=== PATIENT | female | born 1985 | race Hispanic/Latino ===

== ENCOUNTER 2017-08-12 13:48 | Inpatient (IN) | payer MEDICAID, OTHER, SELFPAY ==
[2017-08-12] MEDS ORDERED: Lidocaine 2% PF 10 ML AMP (For Epidural Use) ONE (20:00)
[2017-08-12] MEDS ORDERED: ePHEDrine/0.9% NaCl/PF SYRINGE 50 mg/10 ml ONE (20:00)
[2017-08-12 20:36] VITALS: BMI 30.8
[2017-08-12] MEDS ORDERED: Acetaminophen/Codeine 30-300mg Tablet PO PRN (20:41)
[2017-08-12] MEDS ORDERED: Promethazine HCl 25 MG/ML VIAL IM PRN (20:41)
[2017-08-12] MEDS ORDERED: HYDROcodone/Acetaminophen 5/325 mg Tablet PO PRN (20:41)
[2017-08-12] MEDS ORDERED: Acetaminophen 500 MG TAB PO PRN (20:41)
[2017-08-12] MEDS ORDERED: Ondansetron HCl/PF 4 MG/2 ML Vial IVP PRN (20:41)
[2017-08-12] MEDS ORDERED: Misoprostol 200 MCG TAB PR PRN (20:41)
[2017-08-12] MEDS ORDERED: Zolpidem Tartrate 5 MG TAB PO PRN (20:41)
[2017-08-12] MEDS ORDERED: Lidocaine 1% (PF) 30 ML VIAL SC PRN (20:41)
[2017-08-12] MEDS ORDERED: Penicillin G Potassium 5 MILL.UNITS in Sodium Chloride 0.9% 100 ML IVPB SCH (21:00)
[2017-08-12 21:13] LABS: Red Blood Cell (RBC) Count 3.51 mill/uL (4.20-5.40); White Blood Cell (WBC) Count 9.6 thou/uL (4.8-10.8)
[2017-08-12] MEDS: Lactated Ringer's 1,000 ML IV SCH (21:19)
[2017-08-12] MEDS: Misoprostol 100 MCG TAB VAG SCH (21:24)
[2017-08-12 21:29] LABS: ALT (SGPT) 11 U/L (8-55); AST (SGOT) 15 U/L (5-34); Alkaline Phosphatase 188 U/L (40-150); Anion Gap 15 mmol/L (10-20); BUN (Urea Nitrogen) 9 mg/dL (7.0-18.7); Bilirubin, Total 0.4 mg/dL (0.2-1.2); Calc. Creatinine Clearance 146 mL/min (70-130); Calcium 8.6 mg/dL (7.8-10.44); Carbon Dioxide 21 mmol/L (22-29); Chloride 106 mmol/L (98-107); Estimated GFR-MDRD Greater than 90; Globulin 3.4 g/dL (2.4-3.5); Protein, Total 6.7 g/dL (6.0-8.3)
[2017-08-13] MEDS: Lactated Ringer's 1,000 ML IV SCH ×3 (06:04→23:46)
[2017-08-13] MEDS: LR 500 ML/Oxytocin 10 units 500 ML IV SCH (08:10)
[2017-08-13] MEDS: Penicillin G 2.5 MILL.units 2.5 MILL.UNITS in Premix Bag 1 BAG IVPB SCH ×4 (11:52→23:44)
[2017-08-14] MEDS: LR 500 ML/Oxytocin 10 units 500 ML IV SCH ×3 (00:08→17:39)
[2017-08-14] MEDS: Penicillin G 2.5 MILL.units 2.5 MILL.UNITS in Premix Bag 1 BAG IVPB SCH ×7 (03:31→23:54)
[2017-08-14] MEDS: Misoprostol 100 MCG TAB VAG SCH ×3 (07:27→07:29)
[2017-08-14] MEDS: Lactated Ringer's 1,000 ML IV SCH ×3 (07:34→23:53)
[2017-08-14] MEDS ORDERED: Fentanyl 4 mcg/Marc 0.1% Cadd 100 ML ONE (08:49)
[2017-08-14] MEDS ORDERED: Fentanyl 100 MCG/2 ML VIAL ONE (09:23)
[2017-08-14] MEDS ORDERED: diphenhydrAMINE HCl 50 MG/ML 1 ML VIAL IVP PRN (09:45)
[2017-08-14] MEDS ORDERED: Acetaminophen 325 MG TAB PO PRN (09:45)
[2017-08-14] MEDS ORDERED: ePHEDrine/0.9% NaCl/PF SYRINGE 50 mg/10 ml SLOW IVP PRN (09:45)
[2017-08-14] MEDS ORDERED: Eucerin (Mineral Oil/Petrolatum,White) 30 gm Jar TOP PRN (09:45)
[2017-08-14] MEDS ORDERED: Fentanyl 4mcg/Marcaine 0.1% Cassette 100 ML EPIDURAL SCH (09:45)
[2017-08-14] MEDS ORDERED: Promethazine HCl 25 MG/ML VIAL IM PRN ×2 (09:45→22:36)
[2017-08-14] MEDS ORDERED: Ondansetron HCl/PF 4 MG/2 ML Vial IVP PRN ×2 (09:45→22:36)
[2017-08-14] MEDS ORDERED: Communication Order-Pharmacy FS SCH (09:45)
[2017-08-14] MEDS ORDERED: Lactated Ringer's 500 ML IV PRN (09:45)
[2017-08-14] MEDS ORDERED: Naloxone HCl 0.4 mg/ml Vial IVP PRN ×2 (09:45)
[2017-08-14] MEDS: LR / Pitocin 40 units/1000 ml 1,000 ML IV PRN ×2 (19:25→20:24)
[2017-08-14] MEDS ORDERED: HYDROcodone/Acetaminophen 5/325 mg Tablet PO PRN (22:36)
[2017-08-14] MEDS ORDERED: Benzocaine/Menthol 20-0.5% 60 ML CAN TOP PRN (22:36)
[2017-08-14] MEDS ORDERED: diphenhydrAMINE HCl 25 MG CAP PO PRN (22:36)
[2017-08-14] MEDS ORDERED: Acetaminophen/Codeine 30-300mg Tablet PO PRN (22:36)
[2017-08-14] MEDS ORDERED: Lanolin Ointment 7 GM TUBE TOP PRN (22:36)
[2017-08-14] MEDS ORDERED: Bisacodyl 10 MG SUPP PR PRN (22:36)
[2017-08-14] MEDS ORDERED: LR / Pitocin 40 units/1000 ml 1,000 ML IV SCH (22:36)
[2017-08-14] MEDS ORDERED: Milk Of Magnesia 30 ML UDCUP PO PRN (22:36)
[2017-08-14] MEDS ORDERED: Preparation H Ointment 28 GM TUBE PR PRN (22:36)
[2017-08-14] MEDS ORDERED: Docusate (Surfak) 240 MG CAP PO SCH (22:45)
[2017-08-14] MEDS ORDERED: Ferrous Sulfate 325 MG TAB PO SCH (22:45)
[2017-08-14] MEDS ORDERED: Prenatal Vitamin 1 TAB PO SCH (22:45)
[2017-08-15 06:12] LABS: Hematocrit 35.5 % (36.0-47.0); Mean Platelet Volume 9.1 fL (7.4-10.4); White Blood Cell (WBC) Count 18.2 thou/uL (4.8-10.8)
[2017-08-15] MEDS: Ferrous Sulfate 325 MG TAB PO SCH ×2 (08:14→16:34)
[2017-08-15] MEDS: Prenatal Vitamin 1 TAB PO SCH (08:16)
[2017-08-15] MEDS: Docusate (Surfak) 240 MG CAP PO SCH ×2 (08:16→20:38)
[2017-08-16] MEDS: Ferrous Sulfate 325 MG TAB PO SCH (07:57)
[2017-08-16 07:59] VITALS: BP 127/81; TEMP 98.5
[2017-08-16] MEDS: Prenatal Vitamin 1 TAB PO SCH (09:17)
[2017-08-16] MEDS: Docusate (Surfak) 240 MG CAP PO SCH (09:17)
== END 2017-08-16 15:09 | disposition home or self-care (01) | DRG 775 ==
LOC: L&D 20:08 → 3SW 08-14 22:30 → EDSTATUS 08-21 13:45
PROVIDERS: ADMIT Family Medicine; ATTEND Family Medicine
PROC: 10D07Z6 Extraction of Products of Conception, Vacuum, Via Natural or Artificial Opening (ICD-10-PCS; principal; 2017-08-14)
PROC: 0DQR0ZZ Repair Anal Sphincter, Open Approach (ICD-10-PCS; 2017-08-14)
PROC: 10907ZC Drainage of Amniotic Fluid, Therapeutic from Products of Conception, Via Natural or Artificial Opening (ICD-10-PCS; 2017-08-14)
PROC: 3E033VJ Introduction of Other Hormone into Peripheral Vein, Percutaneous Approach (ICD-10-PCS; 2017-08-14)
PROC: 3E0P7GC Introduction of Other Therapeutic Substance into Female Reproductive, Via Natural or Artificial Opening (ICD-10-PCS; 2017-08-14)
PROC: 4A0H7CZ Measurement of Products of Conception, Cardiac Rate, Via Natural or Artificial Opening (ICD-10-PCS; 2017-08-14)
DX: O13.4 Gestational [pregnancy-induced] hypertension without significant proteinuria, complicating childbirth (principal); O70.20 Third degree perineal laceration during delivery, unspecified; O99.824 Streptococcus B carrier state complicating childbirth; O75.81 Maternal exhaustion complicating labor and delivery; O76 Abnormality in fetal heart rate and rhythm complicating labor and delivery; Z37.0 Single live birth; Z3A.40 40 weeks gestation of pregnancy
CPT/HCPCS: 36415; 80053; 81003; 85027; 86780; 87340; J2001; J2540; J3010; J7050; J7120

== ENCOUNTER 2019-12-23 10:45 | Outpatient (CLI) | payer BC ==
--- NOTE | 2019-12-23 13:33 | ULT ---
OB ULTRASOND: Date: 12/23/2019 HISTORY: Size and dates. FINDINGS: Real-time imaging of the pelvis was obtained and shows a single, viable intrauterine , which is in a vertex presentation. The placenta is anterior in location without evidence of previa. The ce rvical canal length is 5.6 cm. heart rate is 147 beats/minute. Review of anatomy showed normal appearing head, cerebellum, 4 chamber heart, stomach, kidneys, cord insertion, bladder, spine, and extremities. 3 vessel cord identified. No anomalies detected. measurements are as follows: BPD: 7.4 cm, 29 weeks/6 days HC: 28.1 cm, 30 weeks/6 days AC: 25.5 cm, 29 weeks/6 days FL: 5.5 cm, 29 weeks/0 days IMPRESSION: 1. Single, viable intrauterine in a vertex presentation. Overall measurements correspond t o a gestational age of 30 weeks and 0 days. Estimated date of delivery is 03/02/2020. 2. Placenta which is anterior in location without evidence of previa. 3. Estimated weight 1415 gm, +/- 207 gm. POS: [facility]
== END 2019-12-23 10:46 | disposition home or self-care (01) ==
LOC: BICULT 10:45
PROVIDERS: ATTEND Family Medicine
DX: Z34.83 Encounter for supervision of other normal pregnancy, third trimester (principal); Z3A.30 30 weeks gestation of pregnancy
CPT/HCPCS: 76805

== ENCOUNTER 2020-03-01 12:08 | Inpatient (IN) | payer BC ==
[~2020-03-01 12:08] MED LIST: Bupivacaine/Epinephrine 0.25% 30 ML VIAL ONE
[2020-03-01] MEDS ORDERED: Promethazine HCl 25 MG/ML VIAL IM PRN (12:18)
[2020-03-01] MEDS ORDERED: Acetaminophen 500 MG TAB PO PRN (12:18)
[2020-03-01] MEDS ORDERED: HYDROcodone/Acetaminophen 5/325 mg Tablet PO PRN (12:18)
[2020-03-01] MEDS ORDERED: Acetaminophen/Codeine 30-300mg Tablet PO PRN (12:18)
[2020-03-01] MEDS ORDERED: Ondansetron PF 4 MG/2 ML Vial IVP PRN (12:18)
[2020-03-01] MEDS ORDERED: Misoprostol 200 MCG TAB PR PRN (12:18)
[2020-03-01] MEDS ORDERED: hydrALAZINE 20 MG/ML VIAL SLOW IVP PRN (12:18)
[2020-03-01] MEDS ORDERED: Butorphanol Tartrate 1 MG/ML VIAL SLOW IVP PRN (12:18)
[2020-03-01] MEDS ORDERED: Lidocaine 1% (PF) 30 ML VIAL SC PRN (12:18)
[2020-03-01] MEDS ORDERED: NS / Oxytocin 40 units/1000ml 1,000 ML IV PRN (12:18)
[2020-03-01] MEDS ORDERED: NS w/ Oxytocin 10 units 500 ML IV SCH ×2 (12:30)
[2020-03-01] MEDS: Lactated Ringer's 1,000 ML IV SCH ×2 (12:50→21:23)
[2020-03-01 13:18] LABS: Hemoglobin 11.7 g/dL (12.0-16.0); Mean Corpuscular HGB CONC 35.5 g/dL (32.0-36.0); Mean Corpuscular Hemoglobin 32.9 pg (27.0-31.0); Mean Corpuscular Volume 92.9 fL (78.0-98.0); Mean Platelet Volume 10.1 fL (7.4-10.4); Platelet Count 122 thou/uL (130-400); RBC Distribution Width 12.2 % (11.5-14.5); Red Blood Cell (RBC) Count 3.55 mill/uL (4.20-5.40); White Blood Cell (WBC) Count 6.9 thou/uL (4.8-10.8)
[2020-03-01] MEDS: Misoprostol 100 MCG TAB VAG SCH (13:27)
[2020-03-01 13:29] LABS: ALT (SGPT) 12 U/L (8-55); AST (SGOT) 15 U/L (5-34); Albumin 3.5 g/dL (3.5-5.0); Alkaline Phosphatase 146 U/L (40-110); Anion Gap 15 mmol/L (10-20); BUN (Urea Nitrogen) 6 mg/dL (7.0-18.7); Bilirubin, Total 0.5 mg/dL (0.2-1.2); Calc. Creatinine Clearance 0 mL/min (70-130); Calcium 8.7 mg/dL (7.8-10.44); Carbon Dioxide 20 mmol/L (22-29); Chloride 107 mmol/L (98-107); Estimated GFR-MDRD Greater than 90; Globulin 3.1 g/dL (2.4-3.5); Glucose 93 mg/dL (70-105); Potassium 3.8 mmol/L (3.5-5.1); Protein, Total 6.6 g/dL (6.0-8.3); Sodium 138 mmol/L (136-145)
[2020-03-01 13:47] LABS: Syphilis Antibody Nonreactive (Nonreactive); Syphilis Antibody Index 0.03 S/CO (<1.00 Non-Reactive)
[2020-03-01 13:48] LABS: HBSAg Index 0.15 S/CO (0-0.99); Hep B Surf Ag Non-Reactive S/CO (NonReactive)
[2020-03-01 14:35] VITALS: BMI 33.3
[2020-03-02] MEDS ORDERED: Fentanyl 4 mcg/Bup 0.1% Cadd 100 ML ONE (00:58)
[2020-03-02] MEDS ORDERED: Lactated Ringer's 500 ML IV PRN (02:06)
[2020-03-02] MEDS ORDERED: Acetaminophen 325 MG TAB PO PRN (02:06)
[2020-03-02] MEDS ORDERED: diphenhydrAMINE 50 MG/ML VIAL IVP PRN (02:06)
[2020-03-02] MEDS ORDERED: EPHEDRINE 25 MG/5 ML SYRINGE SLOW IVP PRN (02:06)
[2020-03-02] MEDS ORDERED: Naloxone HCl 0.4 mg/ml Vial IVP PRN ×2 (02:06)
[2020-03-02] MEDS ORDERED: Promethazine HCl 25 MG/ML VIAL IM PRN (02:06)
[2020-03-02] MEDS ORDERED: Ondansetron PF 4 MG/2 ML Vial IVP PRN ×2 (02:06→06:16)
[2020-03-02] MEDS ORDERED: Communication Order-Pharmacy FS SCH (02:15)
[2020-03-02] MEDS ORDERED: Fentanyl 4 mcg/Bupivacaine 0.1% Cassette 100 ML EPIDURAL SCH (02:15)
[2020-03-02] MEDS: Lactated Ringer's 1,000 ML IV SCH (02:26)
[2020-03-02 05:09] LABS: Bacteria/HPF None Seen HPF (None Seen); Bilirubin Negative (Negative); Blood, Urine 2+ (Negative); Clarity Clear (Clear); Glucose, Urine (Dipstick) Normal (Negative); Leukocyte 25 Leu/uL (Negative); Nitrite Negative (Negative); Protein, Urine (Dipstick) 30 mg/dL (Neg-Trace); RBC/HPF Greater than 50 HPF (0-3); Squamous Epithelial 0-3 HPF (0-3); Urobilinogen Normal mg/dL (Less than 2)
[2020-03-02] MEDS ORDERED: NS / Oxytocin 40 units/1000ml 1,000 ML IV SCH (06:16)
[2020-03-02] MEDS ORDERED: Benzocaine-Menthol 82.5 ML CAN TOP PRN (06:16)
[2020-03-02] MEDS ORDERED: Preparation H Ointment 28 GM TUBE PR PRN (06:16)
[2020-03-02] MEDS ORDERED: Acetaminophen/Codeine 30-300mg Tablet PO PRN (06:16)
[2020-03-02] MEDS ORDERED: hydrALAZINE 20 MG/ML VIAL SLOW IVP PRN (06:16)
[2020-03-02] MEDS ORDERED: Lanolin Ointment 7 GM TUBE TOP PRN (06:16)
[2020-03-02] MEDS ORDERED: HYDROcodone/Acetaminophen 5/325 mg Tablet PO PRN (06:16)
[2020-03-02] MEDS ORDERED: diphenhydrAMINE 25 MG CAP PO PRN (06:16)
[2020-03-02] MEDS ORDERED: Bisacodyl 10 MG SUPP PR PRN (06:16)
[2020-03-02] MEDS ORDERED: Milk Of Magnesia 30 ML UDCUP PO PRN (06:16)
[2020-03-02] MEDS ORDERED: NS / Oxytocin 40 units/1000ml 1,000 ML ONE (06:22)
[2020-03-02] MEDS: Prenatal Vitamin 1 TAB PO SCH (11:25)
[2020-03-02] MEDS: Docusate Calcium (SURFAK) 240 MG CAP PO SCH ×2 (11:25→21:36)
[2020-03-02] MEDS: Ferrous Sulfate 325 MG TAB PO SCH ×2 (16:12→17:56)
[2020-03-03 06:42] LABS: Hemoglobin 11.4 g/dL (12.0-16.0); Mean Corpuscular HGB CONC 35.4 g/dL (32.0-36.0); Mean Corpuscular Hemoglobin 33.3 pg (27.0-31.0); Mean Corpuscular Volume 93.9 fL (78.0-98.0); Mean Platelet Volume 9.1 fL (7.4-10.4); Platelet Count 112 thou/uL (130-400); RBC Distribution Width 12.3 % (11.5-14.5); Red Blood Cell (RBC) Count 3.44 mill/uL (4.20-5.40); White Blood Cell (WBC) Count 8.1 thou/uL (4.8-10.8)
[2020-03-03] MEDS: Ferrous Sulfate 325 MG TAB PO SCH ×2 (07:11→13:24)
[2020-03-03] MEDS: Misoprostol 100 MCG TAB VAG SCH ×3 (07:12→07:43)
[2020-03-03 07:48] VITALS: BP 123/65; TEMP 98.2
[2020-03-03] MEDS: Prenatal Vitamin 1 TAB PO SCH (08:17)
[2020-03-03] MEDS: Docusate Calcium (SURFAK) 240 MG CAP PO SCH (08:17)
== END 2020-03-03 15:20 | disposition home or self-care (01) | DRG 806 ==
LOC: L&D 12:08 → 3SE 03-02 06:56
PROVIDERS: ADMIT Family Medicine; ATTEND Family Medicine
PROC: 10E0XZZ Delivery of Products of Conception, External Approach (ICD-10-PCS; principal; 2020-03-02)
PROC: 10907ZC Drainage of Amniotic Fluid, Therapeutic from Products of Conception, Via Natural or Artificial Opening (ICD-10-PCS; 2020-03-02)
PROC: 3E0P7VZ Introduction of Hormone into Female Reproductive, Via Natural or Artificial Opening (ICD-10-PCS; 2020-03-02)
PROC: 0UQGXZZ Repair Vagina, External Approach (ICD-10-PCS; 2020-03-02)
DX: O13.4 Gestational [pregnancy-induced] hypertension without significant proteinuria, complicating childbirth (principal); O99.12 Other diseases of the blood and blood-forming organs and certain disorders involving the immune mechanism complicating childbirth; Z37.0 Single live birth; D69.6 Thrombocytopenia, unspecified; O71.4 Obstetric high vaginal laceration alone; Z3A.39 39 weeks gestation of pregnancy
CPT/HCPCS: 36415; 80053; 81001; 85027; 86780; 86850; 86900; 86901; 87340; J2590